=== PATIENT | male | born 1960 | race Caucasian/White ===

== ENCOUNTER 2020-03-25 09:35 | Inpatient (IN) | payer MEDICARE, SELFPAY ==
[2020-03-25] VITALS (33 sets, daily range): BP systolic 109–145; BP diastolic 57–94; PULSE 57–93; RESP 11–25; TEMP 36.3–36.7; O2SAT 89–100; BMI 33.5
--- NOTE | 2020-03-25 09:45 | XRR_ITS ---
PROCEDURE INFORMATION: Exam: XR Chest, 1 View Exam date and time: 03/25/2020 10:06 AM Age: 60 years old Clinical indication: Other: Vomiting; Additional info: Abdominal pain, vomiting TECHNIQUE: Imaging protocol: XR of the chest Views: 1 view. COMPARISON: No relevant prior studies available. FINDINGS: Lungs: Calcified left hilar nodes and/or mediastinal nodes and/or lung granulomas consistent with old granulomatous disease. Pleural space: Unremarkable. No pleural effusion. No pneumothorax. Heart/Mediastinum: Unremarkable. No cardiomegaly. Bones/joints: Moderate thoracic spondylosis. XR/XR chest 1V portable [id number] IMPRESSION: No acute findings.
--- NOTE | 2020-03-25 09:45 | CTR_ITS ---
PROCEDURE INFORMATION: Exam: CT Abdomen And Pelvis With Contrast Exam date and time: 03/25/2020 10:44 AM Age: 60 years old Clinical indication: Abdominal pain; Prior surgery; Surgery type: Gb, appy; Additional info: Abdominal pain, vomiting TECHNIQUE: Imaging protocol: Computed tomography of the abdomen and pelvis with intravenous contrast. Radiation optimization: All CT scans at this facility use at least one of these dose optimization techniques: automated exposure control; mA and/or kV adjustment per patient size (includes targeted exams where dose is matched to clinical indication); or iterative reconstruction. Contrast material: OMNI 300; Contrast volume: 95 ml; Contrast route: INTRAVENOUS (IV); COMPARISON: No relevant prior studies available. RADIATION DOSE METRICS: Total DLP (mGy-cm): 1263.93 FINDINGS: Liver: Normal. No mass. Gallbladder and bile ducts: Surgical clips in the gallbladder fossa consistent with cholecystectomy. Pancreas: Normal. No ductal dilation. Spleen: Normal. No splenomegaly. Adrenals: Normal. No mass. Kidneys and ureters: Normal. No hydronephrosis. Stomach and bowel: Right paraumbilical hernia containing incarcerated loop of proximal ileum with possible bowel ischemia. High-grade small bowel obstruction with dilated loops of small bowel up to 5.1 cm in diameter proximal to the incarcerated hernia. Appendix: No evidence of appendicitis. Intraperitoneal space: Unremarkable. No free air. No significant fluid collection. Vasculature: Calcification of the abdominal aorta and/or iliac arteries consistent with atherosclerotic vessel disease. Lymph nodes: Unremarkable. No enlarged lymph nodes. Bladder: Unremarkable as visualized. Reproductive: Unremarkable as visualized. Bones/joints: Unremarkable. No acute fracture. Soft tissues: Unremarkable. CT/CT abdomen pelvis w con* [id number] IMPRESSION: 1. Right paraumbilical hernia containing incarcerated loop of proximal ileum with possible bowel ischemia. 2. High-grade small bowel obstruction with dilated loops of small bowel up to 5.1 cm in diameter proximal to the incarcerated hernia. Radiation Dose CTDIVOL = (mGy): DLP = 1263.93 (mGy-cm)
--- NOTE | 2020-03-25 09:46 | ECG_ITS ---
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 Measurements Intervals [place] Rate: 73 P: 18 LA: 172 QRS: 23 QRSD: 90 T: 34 QT: 378 QTc: 417 Interpretive Statements SINUS RHYTHM POSSIBLE INFERIOR MYOCARDIAL INFARCTION , PROBABLY OLD [30 ms Q WAVE IN II/aVF] No previous ECG available for comparison Electronically Signed On 03-25-2020 13:09:17 CDT by Clarke Kemp M.D. [email or web address]
--- NOTE | 2020-03-25 09:49 | W.ED.ABDPA2 ---
HPI - Abdominal Pain General: Chief Complaint: Abdominal Pain Stated Complaint: ABD PAIN Time Seen by Provider: 03/25/20 09:40 History of Present Illness: HPI narrative: This patient is a 60-year-old male presenting with abdominal pain. He reports that his symptoms started on Friday although he notes some pain prior to that. He has had vomiting with brown liquid, constipation with no bowel movement since Friday. He has diffuse abdominal pain. He has a surgical history significant for ruptured appendix and multiple surgeries. He had an open laparotomy. This was done in [place] as well as in [place]. He has never had surgery here at [facility]. He has a significant hernia on the right side of the surgical scar which is firm. He said it is always like that and he is never able to reduce it. He does not feel like it significantly different or worse today. He denies fevers, cough, shortness of breath, chest pain. He has not been able to keep down anything other than some sips of water since Friday. He denies any other medical history or allergies to any medications. Associated Symptoms: Reports constipation, nausea and vomiting Review of Systems General: Reports: 10 or more systems reviewed and unremarkable except in HPI and below Eyes: Denies: change in vision ENMT: Denies: odynophagia Card: Denies: chest pain or swelling of feet/ankles Resp: Denies: dyspnea, productive cough or non-productive cough GI: Reports: abdominal pain, nausea, vomiting and constipation : Reports: oliguria; Denies: flank pain Musc: Denies: neck pain or back pain Skin/Breast: Denies: rash Neuro: Denies: headache(s), numbness in extremities or weakness in extremities Nils/Lymph: Denies: easy bruising or easy bleeding PFS ED PFSH: Surgical History Status post exploratory laparotomy Status post laparoscopic cholecystectomy Social History Smoking and tobacco status: never smoked Physical Exam Const: COMMON NORMALS: patient oriented x3, no limitations and alert GENERAL APPEARANCE: cooperative and in distress HENMT: HEAD & SCALP: normal to inspection FACE & SINUS: normal facial exam Eye: GENERAL EYE: appearance normal, both eyes and all related structures Neck/C-Spine: COMMON NORMALS: supple, no meningeal signs and no JVD Chest: COMMONS NORMALS: normal inspection of the chest Resp: COMMON NORMALS: normal respiratory effort, No use of accessory muscles and clear to auscultation bilaterally AUSCULTATION: clear to auscultation bilaterally Cardio: COMMON NORMALS: no JVD, regular rate, regular rhythm and No murmurs present (Cardio) RATE: regular rate RHYTHM: regular rhythm GI: AUSCULTATION: Yes High-pitched bowel sounds present PALPATION: Yes Firmness to palpation present (GI), Yes Tenderness to palpation present (GI) and Yes Hernia present ventral (To the right of the umbilicus and surgical scar. There is also a hernia to the left which is soft and reducible) Back/Pelvis: COMMON NORMALS: thoracic and lumbar spine normal to inspection Extremity: COMMON NORMALS: normal to inspection Neuro: COMMON NORMALS: patient oriented x3, moves all extremities, no focal motor deficits and no sensory deficits noted SENSORIUM/ORIENTATION: Yes alert MENINGEAL SIGNS: Yes no meningeal signs Psych: COMMON NORMALS: mental status grossly normal, cooperative and normal affect Skin: COMMON NORMALS: no rashes or lesions noted and turgor normal GENERAL SKIN EXAM: no rashes or lesions noted and turgor normal Course Consultations: Consultation #1: Radiologist from [facility] called with the report of an incarcerated hernia and small bowel obstruction. Concern for ischemic bowel in the hernia. Time: 12:19 Vital Signs: Vital signs: Vital Signs Temperature 97.4 F L 03/25/20 16:38 Pulse Rate 57 L 03/25/20 16:45 Respiratory Rate 20 H 03/25/20 16:45 Blood Pressure 135/77 03/25/20 16:45 Pulse Oximetry 96 03/25/20 16:45 MDM - Abdominal Pain MDM Narrative: Medical decision making narrative: Abdominal pain, vomiting, no p.o. intake since Friday. Clinically concerned about incarcerated hernia however the patient says that his hernia was feels like that. Labs reflect significant dehydration. White count is only slightly elevated. Lactate was only slightly elevated. CT showed an incarcerated ventral hernia with a loop of bowel. Radiologist expressed concerned about ischemia in the loop. I discussed this with Dr. Solis and he will take the patient to the OR. I did not attempt to reduce the hernia given that it this situation had been going on for so many days. IV fluids, pain medicine and surgical intervention. Lab Data: Labs: Lab Results 03/25/20 03/25/20 03/25/20 Range/Units 10:15 10:15 10:15 WBC 14.1 H (4.0-10.0) 10^3/ uL RBC 6.48 H (4.1-5.3) 10^6/u L Hgb 19.1 H (11.7-16.6) g/dL Hct 57.7 H (42.0-52.0) % MCV 89.0 (80-94) fL MCH 29.5 (28.0-34.0) pg MCHC 33.1 (30.0-36.0) g/dL RDW 12.5 (12.1-15.1) % Plt Count 206 (130-400) 10^3/c mm MPV 12.7 H (7.4-10.4) fL Neut % (Auto) 73.5 % Lymph % (Auto) 14.9 % [place] % (Auto) 10.9 % Eos % (Auto) 0.1 % Baso % (Auto) 0.2 % Neut # (Auto) 10.4 H (1.8-7.7) 10^3/u L Lymph # (Auto) 2.1 (0.8-4.8) 10^3/u L [place] # (Auto) 1.5 H (0.2-0.9) 10^3/u L Eos # (Auto) 0.0 (0.0-0.8) 10^3/u L Baso # (Auto) 0.0 (0.0-0.1) 10^3/u L Nucleated RBC % (a uto) 0 % Nucleated RBCs # 0.0 /100WBC Sodium 133 L (136-145) mmol/L Potassium 3.9 (3.5-5.1) mmol/L Chloride 88 L (98-107) mmol/L Carbon Dioxide 29 (22-29) mmol/L Anion Gap 19.9 H (5-19) BUN 41 H (8-23) mg/dL Creatinine 1.0 (0.7-1.2) mg/dL GFR Calculation 76.2 L (90-130) mL/min Glucose 211 H (65-115) mg/dL Calculated Osmolal ity 280 L (285-295) mOsm/k g Lactate 2.3 H (0.5-2.2) mmol/L Calcium 10.4 (8.5-10.5) mg/dL Total Bilirubin 1.1 (0.15-1.2) mg/dL AST 17 (0-40) U/L ALT 30 (0-41) U/L Alkaline Phosphata se 91 (40-130) IU/L Total Protein 7.1 (6.6-8.7) g/dL Albumin 4.7 (3.5-5.2) g/dL Globulin 2.4 (1.3-4.6) g/dL Lipase 77 H (13-60) U/L Urine Color (Yellow) Urine Appearance (CLEAR) Urine pH (5-7) Ur Specific Gravit y (1.005-1.030) Urine Protein (Negative) Urine Glucose (UA) (Normal) Urine Ketones (Negative) Urine Blood (Negative) Urine Nitrate (Negative) Urine Bilirubin (NEGATIVE) Urine Urobilinogen (Negative) mg/dL Ur Leukocyte Bhargavi ase (Negative) Urine RBC (0-2) /hpf Urine WBC (0-5) /hpf Ur Squamous Epith Cells (0-5) Amorphous Sediment Urine Bacteria (NONE) Urine Mucus 03/25/20 Range/Units 12:00 WBC (4.0-10.0) 10^3/ uL RBC (4.1-5.3) 10^6/u L Hgb (11.7-16.6) g/dL Hct (42.0-52.0) % MCV (80-94) fL MCH (28.0-34.0) pg MCHC (30.0-36.0) g/dL RDW (12.1-15.1) % Plt Count (130-400) 10^3/c mm MPV (7.4-10.4) fL Neut % (Auto) % Lymph % (Auto) % [place] % (Auto) % Eos % (Auto) % Baso % (Auto) % Neut # (Auto) (1.8-7.7) 10^3/u L Lymph # (Auto) (0.8-4.8) 10^3/u L [place] # (Auto) (0.2-0.9) 10^3/u L Eos # (Auto) (0.0-0.8) 10^3/u L Baso # (Auto) (0.0-0.1) 10^3/u L Nucleated RBC % (a uto) % Nucleated RBCs # /100WBC Sodium (136-145) mmol/L Potassium (3.5-5.1) mmol/L Chloride (98-107) mmol/L Carbon Dioxide (22-29) mmol/L Anion Gap (5-19) BUN (8-23) mg/dL Creatinine (0.7-1.2) mg/dL GFR Calculation (90-130) mL/min Glucose (65-115) mg/dL Calculated Osmolal ity (285-295) mOsm/k g Lactate (0.5-2.2) mmol/L Calcium (8.5-10.5) mg/dL Total Bilirubin (0.15-1.2) mg/dL AST (0-40) U/L ALT (0-41) U/L Alkaline Phosphata se (40-130) IU/L Total Protein (6.6-8.7) g/dL Albumin (3.5-5.2) g/dL Globulin (1.3-4.6) g/dL Lipase (13-60) U/L Urine Color Dark yellow (Yellow) Urine Appearance Clear (CLEAR) Urine pH 5 (5-7) Ur Specific Gravit y 1.020 (1.005-1.030) Urine Protein Trace (Negative) Urine Glucose (UA) Norm (Normal) Urine Ketones 1+ H (Negative) Urine Blood Neg (Negative) Urine Nitrate Negative (Negative) Urine Bilirubin 1+ H (NEGATIVE) Urine Urobilinogen 4 H (Negative) mg/dL Ur Leukocyte Bhargavi ase Negative (Negative) Urine RBC None (0-2) /hpf Urine WBC 0-4 H (0-5) /hpf Ur Squamous Epith Cells Rare (0-5) Amorphous Sediment Not Reportable Urine Bacteria 1+ H (NONE) Urine Mucus 2+ EKG Data ^: EKG 1: EKG interpretation date: 03/25/20 EKG interpretation time: 10:17 Interpretation: Normal sinus rhythm with a rate of 73. Small Q waves in 2, 3, aVF. No acute ST changes or elevation. Normal intervals. Discharge Plan Discharge Patient Disposition: Placed in Observation Admit Provider: Devin Solis Clinical Impression: Small bowel obstruction, Incarcerated ventral hernia, Acute dehydration Condition: Stable Discharge Date/Time: 03/25/20 13:23 Coding Level of Care Code ED District Associate Judge for Chg Fwd Exam Comprehensive
--- NOTE | 2020-03-25 10:00 | PC.NURSE ---
XR performed at bedside.
[2020-03-25] MEDS: ondansetron 2 mg/ML SDV 2 mL 4 MG IVP ×2 (10:17→16:56)
[2020-03-25] MEDS: morphine 4 mg/mL SDV 1 mL IVP ×2 (10:17→11:56)
[2020-03-25] MEDS: sodium chloride 0.9% 1,000 ML 999 ML IV ×2 (10:18→11:56)
[2020-03-25] MEDS: famotidine 20 mg/2 mL INJ 40 MG IVP (10:18)
--- NOTE | 2020-03-25 10:24 | PC.NURSE ---
Pt given ice chips per request, Dr Zain kapadia with ice chips.
--- NOTE | 2020-03-25 10:44 | PC.NURSE ---
Pt placed on 2LNC d/t pt dropping oxygen saturations post medication administration.
--- NOTE | 2020-03-25 11:09 | PC.NURSE ---
Provided pt with urinal for urine sample.
[2020-03-25 11:16] LABS: Basophils % 0.2 %; Eosinophils % 0.1 %; Hematocrit 57.7 % (42.0-52.0); Hemoglobin 19.1 g/dL (11.7-16.6); Lymphocytes # 2.1 10^3/uL (0.8-4.8); Lymphocytes % 14.9 %; Mean Corpuscular HGB Conc 33.1 g/dL (30.0-36.0); Mean Corpuscular Hemoglobin 29.5 pg (28.0-34.0); Mean Platelet Volume 12.7 fL (7.4-10.4); Monocytes # 1.5 10^3/uL (0.2-0.9); Monocytes % 10.9 %; Neutrophils # 10.4 10^3/uL (1.8-7.7); Neutrophils % 73.5 %; Nucleated Red Blood Cells % 0 %; Platelet Count 206 10^3/cmm (130-400); Red Blood Count 6.48 10^6/uL (4.1-5.3); Red Cell Distribution Width 12.5 % (12.1-15.1); White Blood Count 14.1 10^3/uL (4.0-10.0)
[2020-03-25 11:29] LABS: Alanine Aminotransferase 30 U/L (0-41); Albumin Level 4.7 g/dL (3.5-5.2); Alkaline Phosphatase 91 IU/L (40-130); Anion Gap 19.9 (5-19); Aspartate Amino Transferase 17 U/L (0-40); Blood Urea Nitrogen 41 mg/dL (8-23); Calcium 10.4 mg/dL (8.5-10.5); Carbon Dioxide 29 mmol/L (22-29); Chloride 88 mmol/L (98-107); Globulin 2.4 g/dL (1.3-4.6); Glomerular Filtration Rate 76.2 mL/min (90-130); Glucose 211 mg/dL (65-115); Lipase 77 U/L (13-60); Osmolality Calculated 280 mOsm/kg (285-295); Potassium 3.9 mmol/L (3.5-5.1); Sodium 133 mmol/L (136-145); Total Bilirubin 1.1 mg/dL (0.15-1.2); Total Protein 7.1 g/dL (6.6-8.7)
[2020-03-25 11:30] LABS: Lactate (Lactic Acid level) 2.3 mmol/L (0.5-2.2)
--- NOTE | 2020-03-25 11:35 | PC.NURSE ---
Pt unable to void at this time.
[2020-03-25] MEDS: iohexol 300 mg/mL 100 mL Btl IV (11:46)
--- NOTE | 2020-03-25 11:47 | PC.NURSE ---
Pt to CT
--- NOTE | 2020-03-25 11:59 | PC.NURSE ---
Pt returned from CT. Pt provided urine sample.
[2020-03-25 12:15] LABS: Bilirubin Urine 1+ (NEGATIVE); Blood Urine Neg (Negative); Glucose Urine UA Norm (Normal); Ketones Urine 1+ (Negative); Nitrate Urine Negative (Negative); Protein Urine Trace (Negative); Urine Appearance Clear (CLEAR); Urine Color Dark Yellow (Yellow); pH Urine 5 (5-7)
[2020-03-25 12:16] LABS: Add Urine Culture? No; Add Urine Microscopic? YES; Bacteria Urine 1+; Leukocyte Esterase Urine Negative (Negative); Mucus Urine 2+; Squamous Epithelial Cell Urine RARE (0-5); Urobilinogen Urine 4 mg/dL (Negative); WBC Urine 0-4 /hpf (0-5)
--- NOTE | 2020-03-25 12:54 | XRR_ITS ---
PROCEDURE INFORMATION: Exam: XR Chest, 1 View Exam date and time: 03/25/2020 1:52 PM Age: 60 years old Clinical indication: Device placement; Patient HX: Check for ng tube placement TECHNIQUE: Imaging protocol: XR of the chest Views: 1 view. COMPARISON: CR XR chest 1V portable [id number] 03/25/2020 9:54 AM FINDINGS: Tubes, catheters and devices: Enteric tube coiled over the distal esophagus with the tip directed superiorly. Lungs: Unremarkable. No consolidation. Pleural space: Unremarkable. No pleural effusion. No pneumothorax. Heart/Mediastinum: Unremarkable. No cardiomegaly. Vasculature: Calcification of the thoracic aorta and/or great vessels consistent with atherosclerotic vessel disease. Bones/joints: Unremarkable. XR/XR chest 1V portable [id number] IMPRESSION: Enteric tube coiled over the distal esophagus with the tip directed superiorly.
--- NOTE | 2020-03-25 13:11 | PC.NURSE ---
Placement xray performed at bedside, NGT not in stomach. NGT advanced 5cm, auscultated placement. Stomach contents aspirated. Pt refused urinary catheter at this time, requested to wait for surgery.
--- NOTE | 2020-03-25 13:21 | P.HP_ITS ---
Providers/Chief Complaint Primary Care Provider: Luca Roberts DO Chief Complaint: ABD PAIN History of Present Illness aDvina Astudillo is a 60 year old male who had exploratory laparotomy for perforated appendicitis 10 years ago and subsequently developed an incisional hernia and has never been symptomatic. He states that over the last 4 days he has been having worsening abdominal pain with nausea no vomiting. He has not eaten for 4 days. Denies any fevers or chills. No prior hernia repairs in the past. He is also had laparoscopic cholecystectomy. Review of Systems General: Reports: 10 or more systems reviewed and unremarkable except in HPI and below Medications/Allergies Home Medications Medication Instructions Recorded Confirmed Last Taken Type Pepto-Bismol See Rx Instructions .ROUTE .COMPLEX 03/25/20 03/25/20 03/24/20 History naproxen sodium [Aleve] 440 mg PO PRN 03/25/20 03/25/20 Unknown History sennosides [Ex-Lax (sennosides)] 30 mg PO PRN 03/25/20 03/25/20 Unknown History Allergies Allergy/AdvReac Type Severity Reaction Status Date / Time No Known Allergies Allergy Verified 03/25/20 10:26 PFSH Acute PFSH: Surgical History Status post exploratory laparotomy Status post laparoscopic cholecystectomy Social History Smoking and tobacco status: never smoked Vitals/I&O/Wt Last Vital Signs Temp 97.7 F 03/25/20 09:42 Pulse 82 03/25/20 13:00 Resp 20 H 03/25/20 13:00 BP 125/85 03/25/20 13:00 Pulse Ox 95 03/25/20 13:00 03/24/20 03/25/20 03/25/20 22:59 06:59 14:59 Intake Total 1999 Balance 1999 Weight last 48 hrs Weight 208 lb Physical Exam Narrative: EXAM NARRATIVE: HEENT: Normocephalic Eye: Sclera /conjunctiva normal Respiratory and chest: Bilateral clear breath sounds on auscultation Cardiovascular: Normal S1 and S2 heart sounds Abdomen: Soft to palpation, tender incarcerated incisional hernia, well-healed laparotomy scar Neurological: Oriented to place person and time Skin: Intact, no lesions appreciated on gross exam Data : 03/25/20 10:15 03/25/20 10:15 A&P Assessment and plan (1) Incarcerated ventral hernia: Incarcerated incisional hernia containing small bowel loop resulting in secondary small bowel obstruction. Patient is dehydrated Plan for laparoscopic possible open incisional hernia repair with mesh, possible bowel resection Procedure, risks, benefits and alternatives have been discussed with the patient who wishes to proceed with surgery. Status: Acute (2) Small bowel obstruction: Secondary to incarcerated incisional hernia. On the CT scan there is concern about possible ischemia raising the possibility of small bowel resection. Discussed that with the patient and his son. Status: Acute Attestations Medical Necessity Statement*: Small bowel obstruction Coding Level of Care Code Acute Residential Treatment Specialist for [facility] Diagnoses Incarcerated ventral hernia K43.6 Small bowel obstruction K56.609
--- NOTE | 2020-03-25 13:24 | PC.NURSE ---
100 ml of brown/green stomach contents aspirated from stomach via NGT suction.
--- NOTE | 2020-03-25 13:29 | ANES.PREANE2 ---
Pre-Anesthetic Assessment Pre-Anesthetic Assessment: Height/Weight: Height 1.68 m Weight 94.347 kg Temp Pulse Resp BP Pulse Ox 97.7 F 78 20 H 125/85 95 03/25/20 09:42 03/25/20 13:21 03/25/20 13:21 03/25/20 13:21 03/25/20 13:21 Preop Diagnosis: Incarcerated incisional hernia Proposed Procedure: Operation Date: 03/25/20 13:45 Proposed Procedures p Laparoscopic Incisional Hernia Repair(Not Applicable) - Devin Solis MD s possible Small Bowel Resection(Not Applicable) - Devin Solis MD Familial anesthetic complications: none Was Beta Chepe taken within 24 hours: N/A Last intake: NPO > 8 hrs Social: Social History: No alcohol and No tobacco Exam: Pre-Anes Outpt Exam: alert, oriented x 3, clear to auscultation bilaterally and regular rate & rhythm Airway: Cervical ROM: Other (limited extension) MP: 3 Dentition: Loose Additional comments: multiple misisng and loose teeth -poor dentition GI: Comments: hx ruptured appendix, gallbladder surgery incarcerated paraumbilical hernia w/ SBO - has NG in place Anesthetic Plan: ASA status: 2E Anesthesia: General Other: RSI Risk of > 500 ml blood loss (7ml/kg in children): No PFSH Anesthesia PFSH: Surgical History Status post exploratory laparotomy Status post laparoscopic cholecystectomy Social History Smoking and tobacco status: never smoked Data Anesthesia CBC & Chem 7: 03/25/20 10:15 03/25/20 10:15 Other Labs: Laboratory Results - last 48 hr 03/25/20 03/25/20 03/25/20 10:15 10:15 10:15 WBC 14.1 H RBC 6.48 H Hgb 19.1 H Hct 57.7 H MCV 89.0 MCH 29.5 MCHC 33.1 RDW 12.5 Plt Count 206 MPV 12.7 H Neut % (Auto) 73.5 Lymph % (Auto) 14.9 [place] % (Auto) 10.9 Eos % (Auto) 0.1 Baso % (Auto) 0.2 Neut # (Auto) 10.4 H Lymph # (Auto) 2.1 [place] # (Auto) 1.5 H Eos # (Auto) 0.0 Baso # (Auto) 0.0 Nucleated RBC % (auto) 0 Nucleated RBCs # 0.0 Sodium 133 L Potassium 3.9 Chloride 88 L Carbon Dioxide 29 Anion Gap 19.9 H BUN 41 H Creatinine 1.0 GFR Calculation 76.2 L Glucose 211 H Calculated Osmolality 280 L Lactate 2.3 H Calcium 10.4 Total Bilirubin 1.1 AST 17 ALT 30 Alkaline Phosphatase 91 Total Protein 7.1 Albumin 4.7 Globulin 2.4 Lipase 77 H Urine Color Urine Appearance Urine pH Ur Specific [place] Urine Protein Urine Glucose (UA) Urine Ketones Urine Blood Urine Nitrate Urine Bilirubin Urine Urobilinogen Ur Leukocyte Esterase Urine RBC Urine WBC Ur Squamous Epith Cells Amorphous Sediment Urine Bacteria Urine Mucus 03/25/20 12:00 WBC RBC Hgb Hct MCV MCH MCHC RDW Plt Count MPV Neut % (Auto) Lymph % (Auto) [place] % (Auto) Eos % (Auto) Baso % (Auto) Neut # (Auto) Lymph # (Auto) [place] # (Auto) Eos # (Auto) Baso # (Auto) Nucleated RBC % (auto) Nucleated RBCs # Sodium Potassium Chloride Carbon Dioxide Anion Gap BUN Creatinine GFR Calculation Glucose Calculated Osmolality Lactate Calcium Total Bilirubin AST ALT Alkaline Phosphatase Total Protein Albumin Globulin Lipase Urine Color Dark yellow Urine Appearance Clear Urine pH 5 Ur Specific [place] 1.020 Urine Protein Trace Urine Glucose (UA) Norm Urine Ketones 1+ H Urine Blood Neg Urine Nitrate Negative Urine Bilirubin 1+ H Urine Urobilinogen 4 H Ur Leukocyte Esterase Negative Urine RBC None Urine WBC 0-4 H Ur Squamous Epith Cells Rare Amorphous Sediment Not Reportable Urine Bacteria 1+ H Urine Mucus 2+ Cardiac Studies: No Data to Display
--- NOTE | 2020-03-25 14:25 | SUR.OPER ---
Grey Uribe updated of surgical status.
--- NOTE | 2020-03-25 15:45 | SUR.OPER ---
son updated of patients status.
--- NOTE | 2020-03-25 16:37 | PM.OP ---
Operative Report Date of procedure: March 25, 2020 Pre-op Diagnosis: Incarcerated incisional hernia containing small bowel with small bowel obst Post-op Diagnosis: Incisional hernia with multiple Afghan cheese defect from prior laparotomy Small bowel obstruction secondary to incarcerated incisional hernia No evidence of bowel ischemia Procedure Done: Laparoscopic lysis of adhesions for 75 minutes to relieve small bowel obstruction Laparoscopic repair of incarcerated incisional hernia with proceed mesh measuring 25 x 20 cm Pathology: Abdominal wall mass Surgeon: Devin Solis Anesthesia: General Estimated blood loss (mL): 25 Condition: stable Disposition: PACU Procedure: The patient was taken to the Operating Room and was intubated under general anesthesia after the antibiotic had been administered. The abdomen was prepped and draped in a sterile manner. Using a 15 blade, a 2-cm incision was made in the left upper quadrant in the anterior axillary line and pneumoperitoneum was created using Verres needle. A 10 mm Myriam port was placed and 15 mm of pneumoperitoneum was created after a 10 mm 30? scope had been introduced. Two 5 mm ports were placed at the level of the umbilicus and in the left lower quadrant under direct visualization. There was incarcerated incisional hernia containing omentum and small bowel loop involving the entire laparotomy scar. Starting superiorly omental fat within the hernia sac was reduced and careful lysis of adhesions was performed to divide the omentum from the abdominal wall and about 4 separate defects were identified along the prior laparotomy scar. Towards the inferior aspect of the incision small bowel loop was incarcerated within the defect and this was carefully freed up using scissors until the small bowel could be reduced. There is no evidence of bowel ischemia and this appeared to be the site of obstruction since it was decompressed bowel loops distal to this point. Laparoscopic lysis of adhesions was performed for a total of 75 minutes to free the obstructing small bowel as well as omentum from the abdominal wall and adherent small bowel loops. There was well-circumscribed mass within the hernia defect which measured about 5 x 5 cm noticed freed when the small bowel loops were from the abdominal wall. This was dissected free from the surrounding omentum and placed in the right subhepatic space for retrieval later. 20 cc of saline mixed with 20 cc of Exparel mixed with 20 cc 0.5% Marcaine was infiltrated in the midclavicular line for a TAP block under laparoscopic visualization. A spinal needle was introduced through the abdominal wall and the edges of the hernial defect were marked and measured 15 x 10 cm. A 5 cm margin was marked on the abdominal wall on the outer edge of the hernial defect. 4 separate 2-0 [place] sutures were placed at the 4 corners of the Proceed mesh which measured 25 x 20 cm. A 5 mm camera was introduced and the mesh was introduced through the 10 mm port. Grannie needle was passed through the stab incisions and used to grasp the free ends of the [place] sutures which were then used to pull the mesh up against the abdominal wall; 5 mm SecurStraps were placed 1 cm apart along the edge of the mesh to hold it against the abdominal wall. At the end of this, it was noted that the mesh was well positioned over the hernial defect. An Endo Catch bag was introduced and the abdominal wall mass within the hernia defect that had been previously dissected free was removed through the 10 mm port. All ports were removed under direct visualization and there was no bleeding noted from the port sites. The external oblique aponeurosis was approximated at this port site using figure of eight 0 Vicryl suture. The subcutaneous tissue was approximated using 3-0 Vicryl sutures. The skin at all 3 port sites was closed using subcuticular 4-0 Monocryl suture. The stab incisions and the 3 port sites were covered with Dermabond. 10cc of 0.5% Marcaine was infiltrated around the port sites. The patient was extubated and transferred to recovery room with NG tube and Francois catheter in place. Abdominal binder had been placed at the end of the procedure.
--- NOTE | 2020-03-25 16:44 | SUR.PHASEI ---
0982 PATIENT TO PACU FROM OR. ORAL AIRWAY IN PLACE, SPO2 96% ON SIMPLE MASK AT 8L. 3 INCISIONS TO ABDOMEN, CDI WITH ABDOMINAL BINDER IN PLACE. POLK CATH DRAINING. NG TUBE TO LEFT NARE PLACED TO INTERMITTENT SUCTION.
--- NOTE | 2020-03-25 16:48 | SUR.PHASEI ---
1648 ORAL AIRWAY REMOVED AT THIS TIME. SPO2 95% ON SIMPLE MASK AT 8L.
[2020-03-25] MEDS: fentaNYL 50 mcg/mL INJ 2mL IVP (17:00)
[2020-03-25] MEDS: morphine 4 mg/mL SDV 1 mL 2 MG IVP ×2 (17:09→17:19)
--- NOTE | 2020-03-25 17:50 | SUR.PHASEI ---
1736 PATIENT TO MED SURG AT THIS TIME. NG TO LEFT NARE, ABDOMINAL BINDER IN PLACE. PATIENT DROWSY, A/OX3.
[2020-03-25] MEDS: ketorolac 30 mg/mL INJ 15 MG IVP (18:04)
[2020-03-25] MEDS: D5-NS 0.45% + KCL 20 mEq 20 MEQ/1,000 ML BAG 125 MEQ IV (18:04)
[2020-03-25] MEDS: morphine 4 mg/mL SDV 1 mL 3 MG IVP (21:08)
[2020-03-25] MEDS: sennosides 8.6 mg Tablet 17.2 MG PO (21:31)
[2020-03-26] VITALS (7 sets, daily range): BP systolic 112–143; BP diastolic 74–89; PULSE 79–100; RESP 16–20; TEMP 35.9–36.9; O2SAT 94–96
[2020-03-26] MEDS: ketorolac 30 mg/mL INJ 15 MG IVP ×5 (00:26→23:34)
[2020-03-26] MEDS: D5-NS 0.45% + KCL 20 mEq 20 MEQ/1,000 ML BAG 125 MEQ IV ×3 (02:03→18:10)
[2020-03-26] MEDS: enoxaparin 40 mg/0.4 mL Syringe SUBCUT (05:06)
[2020-03-26 05:41] LABS: Basophils % 0.1 %; Eosinophils % 0.1 %; Hematocrit 44.4 % (42.0-52.0); Hemoglobin 14.5 g/dL (11.7-16.6); Lymphocytes % 17.4 %; Mean Corpuscular HGB Conc 32.7 g/dL (30.0-36.0); Mean Corpuscular Hemoglobin 30.3 pg (28.0-34.0); Mean Corpuscular Volume 92.9 fL (80-94); Mean Platelet Volume 12.6 fL (7.4-10.4); Monocytes # 1.5 10^3/uL (0.2-0.9); Monocytes % 13.1 %; Neutrophils # 7.8 10^3/uL (1.8-7.7); Neutrophils % 69.1 %; Nucleated Red Blood Cells % 0 %; Platelet Count 194 10^3/cmm (130-400); Red Blood Count 4.78 10^6/uL (4.1-5.3); White Blood Count 11.4 10^3/uL (4.0-10.0)
[2020-03-26 05:49] LABS: Anion Gap 16.8 (5-19); Blood Urea Nitrogen 37 mg/dL (8-23); Calcium 8.2 mg/dL (8.5-10.5); Carbon Dioxide 26 mmol/L (22-29); Chloride 99 mmol/L (98-107); Glomerular Filtration Rate 68.3 mL/min (90-130); Glucose 198 mg/dL (65-115); Osmolality Calculated 287 mOsm/kg (285-295); Potassium 4.8 mmol/L (3.5-5.1); Sodium 137 mmol/L (136-145)
--- NOTE | 2020-03-26 08:10 | PM.PN ---
Subjective Subjective: Interval history: Patient had 700 cc out from the NG tube, no nausea or vomiting. No flatus or BM. Abdominal pain is slightly improved Vitals/I&O/Wt Last Vital Signs Temp 98.1 F 03/26/20 07:30 Pulse 86 03/26/20 07:30 Resp 18 03/26/20 07:30 BP 136/89 03/26/20 07:30 Pulse Ox 95 03/26/20 07:30 03/25/20 03/26/20 03/26/20 22:59 06:59 14:59 Intake Total 2140 / 5257.917 1117.917 / 5257.917 Output Total 465 / 1415 950 / 1415 Balance 1675 / 3842.917 167.917 / 3842.917 Weight last 48 hrs Weight 208 lb Physical Exam Narrative: EXAM NARRATIVE: Abdomen: Soft, distended, tender, incisions clean dry and intact, NG tube to low intermittent suction Francois to gravity Urinary Catheter Management^: Francois: Cath Placed During This Visit: yes Urinary Catheter Date of Insertion: 03/25/20 Urinary Catheter Time of Insertion: 13:50 Data : 03/26/20 03:35 03/26/20 03:35 A&P Assessment and plan (1) Small bowel obstruction: 60-year-old gentleman status post lysis of adhesions for small bowel obstruction. Continue NG tube to low intermittent suction IS Status: Acute (2) Acute dehydration: Leave Francois in for 24 more hours to monitor urine output accurately 1 L normal saline bolus, increase fluids to 150 cc/h Status: Acute (3) History of incisional hernia repair: continue with abdominal binder Ambulate with physical therapy Lovenox for DVT prophylaxis Protonix 40 mg daily for GI prophylaxis DC antibiotics after 2 doses postop Patient will need continued inpatient stay to ensure resolution of obstruction Status: Acute Attestations Medical Necessity Statement*: Small bowel obstruction secondary to incarcerated incisional hernia Coding Level of Care Code 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
[2020-03-26] MEDS: sodium chloride 0.9% 1,000 ML 999 ML IV (08:16)
[2020-03-26] MEDS: pantoprazole 40 mg SDV IVP (08:18)
[2020-03-26] MEDS: acetaminophen 325 mg Tablet 650 MG PO (08:19)
--- NOTE | 2020-03-26 15:16 | PC.PT ---
PT note; viewed patient to be ambulating with nursing in hallways, without difficulty, or deficit, pushing IV pole time several 100 feet distance: Nursing states forming several walks today, nursing states independent transfers without difficulty and patient cooperative and motivated; no further evaluation attempts to be made unless further orders are received.
--- NOTE | 2020-03-26 18:42 | PC.NURSE ---
NG tube had 700 out today. Travis marked.
[2020-03-26] MEDS: sennosides 8.6 mg Tablet 17.2 MG PO (20:32)
[2020-03-27] VITALS (8 sets, daily range): BP systolic 127–148; BP diastolic 77–87; PULSE 87–104; RESP 16–20; TEMP 36.5–37.6; O2SAT 93–97
[2020-03-27] MEDS: D5-NS 0.45% + KCL 20 mEq 20 MEQ/1,000 ML BAG 125 MEQ IV ×2 (03:31→11:07)
[2020-03-27 04:53] LABS: Basophils % 0.1 %; Eosinophils # 0.1 10^3/uL (0.0-0.8); Eosinophils % 0.7 %; Hematocrit 37.1 % (42.0-52.0); Hemoglobin 12.2 g/dL (11.7-16.6); Lymphocytes # 2.3 10^3/uL (0.8-4.8); Lymphocytes % 25.9 %; Mean Corpuscular HGB Conc 32.9 g/dL (30.0-36.0); Mean Corpuscular Hemoglobin 30.3 pg (28.0-34.0); Mean Corpuscular Volume 92.1 fL (80-94); Mean Platelet Volume 12.1 fL (7.4-10.4); Monocytes % 10.9 %; Neutrophils # 5.4 10^3/uL (1.8-7.7); Neutrophils % 62.1 %; Nucleated Red Blood Cells % 0 %; Platelet Count 153 10^3/cmm (130-400); Red Blood Count 4.03 10^6/uL (4.1-5.3); Red Cell Distribution Width 12.9 % (12.1-15.1); White Blood Count 8.7 10^3/uL (4.0-10.0)
[2020-03-27 05:08] LABS: Anion Gap 13.1 (5-19); Blood Urea Nitrogen 23 mg/dL (8-23); Calcium 8.1 mg/dL (8.5-10.5); Carbon Dioxide 25 mmol/L (22-29); Chloride 102 mmol/L (98-107); Glucose 150 mg/dL (65-115); Osmolality Calculated 282 mOsm/kg (285-295); Potassium 4.1 mmol/L (3.5-5.1); Sodium 136 mmol/L (136-145)
[2020-03-27] MEDS: enoxaparin 40 mg/0.4 mL Syringe SUBCUT (06:14)
[2020-03-27] MEDS: ketorolac 30 mg/mL INJ 15 MG IVP ×4 (06:14→23:01)
[2020-03-27] MEDS: morphine 4 mg/mL SDV 1 mL 3 MG IVP (08:10)
[2020-03-27] MEDS: pantoprazole 40 mg SDV IVP (08:14)
[2020-03-27] MEDS: ondansetron 2 mg/ML SDV 2 mL 4 MG IVP (11:07)
--- NOTE | 2020-03-27 15:31 | PM.PN ---
Subjective Subjective: Interval history: Patient continues to have abdominal pain, no nausea or vomiting. No flatus or BM Vitals/I&O/Wt Last Vital Signs Temp 98.8 F 03/27/20 11:43 Pulse 104 H 03/27/20 11:43 Resp 20 H 03/27/20 11:43 BP 129/77 03/27/20 11:43 Pulse Ox 96 03/27/20 11:43 03/27/20 03/27/20 03/27/20 06:59 14:59 22:59 Intake Total 1000 / 3285.833 950 / 950 Output Total 0 / 825 Balance 1000 / 2460.833 950 / 950 Physical Exam Narrative: EXAM NARRATIVE: Demented: Soft, distended, minimally tender, incision clean dry and intact, NG tube to LIS Francois to gravity Urinary Catheter Management^: Francois: Cath Placed During This Visit: yes Urinary Catheter Date of Insertion: 03/25/20 Urinary Catheter Time of Insertion: 13:50 Data : 03/27/20 04:05 03/27/20 04:05 A&P Assessment and plan (1) Small bowel obstruction: Status post laparoscopic lysis of adhesions with postop ileus and awaiting return of bowel function Continue NG tube to low intermittent suction DC Francois catheter today's half year cellular Status: Acute (2) History of incisional hernia repair: Incisions clean and intact continued abdominal binder Toradol for pain control Ambulate with physical therapy Status: Acute Attestations Medical Necessity Statement*: Postoperative ileus status post laparoscopic repair of incisional hernia Coding Level of Care Code 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
[2020-03-27] MEDS: D5-NS 0.45% + KCL 20 mEq 20 MEQ/1,000 ML BAG 75 MEQ IV (16:57)
[2020-03-27] MEDS: sennosides 8.6 mg Tablet 17.2 MG PO (16:57)
[2020-03-28] VITALS (7 sets, daily range): BP systolic 119–148; BP diastolic 75–91; PULSE 90–100; RESP 14–20; TEMP 35.9–37.4; O2SAT 95–98
[2020-03-28] MEDS: morphine 4 mg/mL SDV 1 mL 3 MG IVP (03:57)
[2020-03-28 04:02] LABS: Basophils % 0.2 %; Eosinophils # 0.1 10^3/uL (0.0-0.8); Hematocrit 37.4 % (42.0-52.0); Hemoglobin 12.2 g/dL (11.7-16.6); Lymphocytes % 22.3 %; Mean Corpuscular HGB Conc 32.6 g/dL (30.0-36.0); Mean Corpuscular Hemoglobin 30.3 pg (28.0-34.0); Mean Corpuscular Volume 92.8 fL (80-94); Mean Platelet Volume 11.9 fL (7.4-10.4); Monocytes # 1.3 10^3/uL (0.2-0.9); Monocytes % 9.9 %; Neutrophils # 8.7 10^3/uL (1.8-7.7); Neutrophils % 66.2 %; Nucleated Red Blood Cells % 0 %; Platelet Count 176 10^3/cmm (130-400); Red Blood Count 4.03 10^6/uL (4.1-5.3); Red Cell Distribution Width 12.7 % (12.1-15.1); White Blood Count 13.2 10^3/uL (4.0-10.0)
[2020-03-28 04:29] LABS: Anion Gap 13.4 (5-19); Blood Urea Nitrogen 15 mg/dL (8-23); Calcium 8.6 mg/dL (8.5-10.5); Carbon Dioxide 26 mmol/L (22-29); Chloride 102 mmol/L (98-107); Glucose 151 mg/dL (65-115); Osmolality Calculated 283 mOsm/kg (285-295); Potassium 4.4 mmol/L (3.5-5.1); Sodium 137 mmol/L (136-145)
[2020-03-28] MEDS: enoxaparin 40 mg/0.4 mL Syringe SUBCUT (06:17)
[2020-03-28] MEDS: ketorolac 30 mg/mL INJ 15 MG IVP ×2 (06:18→11:05)
--- NOTE | 2020-03-28 06:55 | PC.NURSE ---
PT WALKED 4 LAPS AROUND THE WHOLE FLOOR THROUGH THE SLOT FLOORMAN
[2020-03-28] MEDS: D5-NS 0.45% + KCL 20 mEq 20 MEQ/1,000 ML BAG 75 MEQ IV (09:04)
[2020-03-28] MEDS: pantoprazole 40 mg SDV IVP (09:05)
[2020-03-28] MEDS: sennosides 8.6 mg Tablet 17.2 MG PO (09:05)
--- NOTE | 2020-03-28 10:40 | PC.SOCIAL ---
Pg 2 IMM Explained to pt Pg 2 IMM. Pt verbally understands. No questions voiced. Provided pt a copy & left on pt's bedside table. Signed, dated, & timed a copy & placed in pt's chart.
[2020-03-28] MEDS: phenol oral Spray 177 mL 3 SPRAY MUCOUS MEM (11:43)
--- NOTE | 2020-03-28 12:04 | PC.NURSE ---
NG tube removed by Dr Solis
--- NOTE | 2020-03-28 16:57 | PM.PN ---
Subjective Subjective: Interval history: Patient doing well denies any significant pain nausea or vomiting, had 2 bowel movements today. Vitals/I&O/Wt Last Vital Signs Temp 99.3 F 03/28/20 16:00 Pulse 96 03/28/20 16:00 Resp 14 03/28/20 16:00 BP 119/75 03/28/20 16:00 Pulse Ox 98 03/28/20 16:00 03/28/20 03/28/20 03/28/20 06:59 14:59 22:59 Intake Total 1000 / 2622.5 1541 / 1541 Output Total 220 / 1370 200 / 200 Balance 780 / 1252.5 1341 / 1341 Physical Exam Narrative: EXAM NARRATIVE: Abdomen: Soft, nontender, no incisions healing well Urinary Catheter Management^: Francois: Cath Placed During This Visit: yes, but has since been removed by the nurse Reason for Continuing Indwelling Catheter: Decision to DC Catheter Urinary Catheter Date of Insertion: 03/25/20 Urinary Catheter Time of Insertion: 13:50 Date Urinary Catheter Removed: 03/27/20 Time Urinary Catheter Discontinued: 15:50 Data : 03/28/20 03:30 03/28/20 03:30 A&P Assessment and plan (1) Small bowel obstruction: 60-year-old male status post laparoscopic incisional hernia repair doing well. He has had a bowel movement today. 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
[2020-03-29] VITALS: BP 139/86; PULSE 86; RESP 16; TEMP 36.6; O2SAT 96
[2020-03-29] MEDS: D5-NS 0.45% + KCL 20 mEq 20 MEQ/1,000 ML BAG 75 MEQ IV (01:03)
[2020-03-29] MEDS: acetaminophen 325 mg Tablet 650 MG PO (01:03)
[2020-03-29 04:00] VITALS: BP 145/78; PULSE 71; RESP 20; TEMP 36.3; O2SAT 96
[2020-03-29] MEDS: enoxaparin 40 mg/0.4 mL Syringe SUBCUT (05:05)
--- NOTE | 2020-03-29 05:09 | PC.NURSE ---
Patient states he voided 3 times in toilet during the night.
[2020-03-29 08:00] VITALS: BP 150/92; PULSE 86; RESP 18; TEMP 36.8; O2SAT 98
[2020-03-29] MEDS: pantoprazole 40 mg SDV IVP (08:06)
[2020-03-29] MEDS: magnesium citrate Btl 296 mL PO (08:06)
[2020-03-29] MEDS: sennosides 8.6 mg Tablet 17.2 MG PO (08:06)
[2020-03-29 12:00] VITALS: BP 120/74; PULSE 78; RESP 20; TEMP 36.6; O2SAT 99
--- NOTE | 2020-03-29 14:57 | PM.PN ---
Subjective Subjective: Interval history: Patient doing well denies any pain nausea vomiting fevers or chills. Tolerating regular diet Vitals/I&O/Wt Last Vital Signs Temp 97.8 F 03/29/20 12:00 Pulse 78 03/29/20 12:00 Resp 20 H 03/29/20 12:00 BP 120/74 03/29/20 12:00 Pulse Ox 99 03/29/20 12:00 03/28/20 03/29/20 03/29/20 22:59 06:59 14:59 Intake Total 1480 / 3741 720 / 3741 360 / 360 Output Total 0 / 425 225 / 425 Balance 1480 / 3316 495 / 3316 360 / 360 Physical Exam Narrative: EXAM NARRATIVE: Abdomen: Soft, nontender, nondistended incisions healing well Urinary Catheter Management^: Francois: Cath Placed During This Visit: yes, but has since been removed by the nurse Reason for Continuing Indwelling Catheter: Decision to DC Catheter Urinary Catheter Date of Insertion: 03/25/20 Urinary Catheter Time of Insertion: 13:50 Date Urinary Catheter Removed: 03/27/20 Time Urinary Catheter Discontinued: 15:50 Data : 03/28/20 03:30 03/28/20 03:30 A&P Assessment and plan (1) History of incisional hernia repair: Doing well DC home today Status: Acute Attestations Medical Necessity Statement*: Small bowel obstruction secondary to incisional hernia Coding Level of Care Code 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
--- NOTE | 2020-03-29 14:57 | PM.DCS ---
Discharge Providers Date of Admission: 03/25/20 15:32 Date of Discharge: March 29, 2020 Attending Provider at Admission: Devin Solis MD Attending Provider at Discharge: Devin Solis MD Primary Care Provider: Luca Roberts DO Diagnoses at Discharge Discharge Diagnosis (1) History of incisional hernia repair: Status: Acute Reason for Visit Reason for Visit: ABD PAIN Hospital Course Discharge Summary: This is a 60-year-old male who presented to the ER on 03/25/2020 with small bowel obstruction secondary incarcerated incisional hernia. Patient underwent laparoscopic repair of incisional hernia with mesh. Over the course of the next 3 days patient had return of bowel function. At time of discharge patient is tolerating a regular diet and had multiple bowel movements. His vital signs are stable and his incisions are clean dry and intact. Physical Exam Narrative: EXAM NARRATIVE: Abdomen: Soft incisions healing well Urinary Catheter Management^: Francois: Cath Placed During This Visit: yes, but has since been removed by the nurse Reason for Continuing Indwelling Catheter: Decision to DC Catheter Urinary Catheter Date of Insertion: 03/25/20 Urinary Catheter Time of Insertion: 13:50 Date Urinary Catheter Removed: 03/27/20 Time Urinary Catheter Discontinued: 15:50 Discharge Data Data Completed and Pending: Completed Studies During Hospitalization Category Date Time Status CT abdomen pelvis w con* [id number] Urge nt Cat Scan 03/25/20 09:45 Completed XR chest 1V alexei ble [id number] Stat Exams 03/25/20 09:45 Completed XR chest 1V alexei ble [id number] Stat Exams 03/25/20 12:54 Completed Pathology: Surgic al [PTH] Routine Pth 03/25/20 16:42 Completed Pending at discharge Category Date Time Status ES surgery / GI i mages Routine Exams 03/25/20 13:00 Taken Vitals: Last Vital Signs Temp 97.8 F 03/29/20 12:00 Pulse 78 03/29/20 12:00 Resp 20 H 03/29/20 12:00 BP 120/74 03/29/20 12:00 Pulse Ox 99 03/29/20 12:00 Discharge Plan Discharge Patient Disposition: Home, Self-Care Condition: Stable Prescriptions: [place] 5-325 mg tablet 1 tab PO Q6H 7 Days Qty: 20 RF: 0 ondansetron HCl [Zofran] 4 mg tablet 4 mg PO Q6H PRN (Reason: nausea and vomiting) Qty: 20 RF: 0 docusate sodium [Colace] 100 mg capsule 100 mg PO BID Qty: 30 RF: 0 Continued Ex-Lax (sennosides) 15 mg Tablet,Chewable 30 mg PO PRN RF: 0 Aleve 220 mg Tablet 440 mg PO PRN RF: 0 Pepto-Bismol See Rx Instructions .ROUTE .COMPLEX RF: 0 Discharge Orders: Discharge Order (Routine); Ordered 03/29/20 Ordered By: Devin Solis Referrals: Devin Solis MD [Physician] - 2 weeks Discharge Diet: Advance as tolerated Activity Restrictions/Additional Instructions: 1. Up and walking as tolerated. 2. Ok to shower in 48 hours after surgery. 3. Remove Dermabond dressing in 7-10 days. 4. Do not lift more than 10 pounds. 5. Do not operate heavy machinery or drive while using pain medications. 6. Advised to return to ER or contact my office if there are any signs of infection like, increasing pain, fevers, chills, redness or drainage of pus. 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
[2020-03-29 15:07] VITALS: BP 120/74; PULSE 78; RESP 20; TEMP 36.6; O2SAT 99
--- NOTE | 2020-03-29 15:29 | PC.NURSE ---
discharge instructions given to patient and patient verbalized understanding. IV removed. Patient dressed and waiting on ride from family
[2020-03-29 15:52] VITALS: BP 120/74; PULSE 78; RESP 20; TEMP 36.6; O2SAT 99
== END 2020-03-29 15:53 | disposition home or self-care (01) | DRG 336 ==
LOC: ER 10:11 → OR 12:35 → MEDSURG 18:08
PROVIDERS: Emergency Medicine; Admitting Provider Surgery; Family Provider Family Medicine; PCP Family Medicine; Visit Provider Surgery
PROC: 0WQF4ZZ Repair Abdominal Wall, Percutaneous Endoscopic Approach (ICD-10-PCS; principal; 2020-03-25 13:45)
DX: K43.6 Other and unspecified ventral hernia with obstruction, without gangrene (principal); K56.609 Unspecified intestinal obstruction, unspecified as to partial versus complete obstruction; E86.0 Dehydration
CPT/HCPCS: 12345; 36415; 51702; 71045; 74177; 80048; 80053; 81001; 83605; 83690; 85025; 88309; 93005; 94664; 96372; 96375; 99284; C9113; C9290; J0330; J0690; J1100; J1650; J1885; J2250; J2270; J2405; J2704; J2710; J3010; J3490; J7030; Q9967